=== PATIENT | female | born 2000 | race Caucasian/White ===

== ENCOUNTER 2023-09-21 18:37 | Inpatient (IN) | payer OTHER ==
[2023-09-21] MEDS ORDERED: SODIUM CHLORIDE 1,864 ML IV ONE (19:47)
[2023-09-21] MEDS ORDERED: ACETAMINOPHEN 1000 MG/100 ML BAG IVPB ONE (19:50)
[2023-09-21] MEDS ORDERED: ACETAMINOPHEN INJECTION 100 ML IVPB ONE (20:05)
[2023-09-21 20:20] LABS: MCHC 28.9 g/dl (32.0-36.0); MEAN CELL VOLUME 51.3 fl (80-96); MEAN PLT VOLUME 8.3 fl (7.5-11.1); PLATELET COUNT 516 10^3/uL (134-434); RBC 3.61 M/mm3 (3.60-5.2); RDW 19.6 % (11.6-15.6); WHITE BLOOD COUNT 20.9 K/mm3 (4.0-10.0)
[2023-09-21 20:22] LABS: EPI CELLS 15 /uL (0-25.1); HYALINE CASTS 1 /uL (0-3.1); URINE APPEARANCE CLOUDY; URINE BACTERIA >9,000 /uL (0-1359); URINE BILIRUBIN NEGATIVE (NEGATIVE); URINE COLOR YELLOW; URINE GLUCOSE (UA) NEGATIVE (NEGATIVE); URINE KETONE 1+ (NEGATIVE); URINE LEUK ESTERASE 2+ (NEGATIVE); URINE NITRITE POSITIVE (NEGATIVE); URINE PROTEIN 2+ (NEGATIVE); URINE RBC 30 /uL (0-23.9); URINE WBC 1394 /uL (0-25.8)
[2023-09-21 20:22] LABS: INR 1.24 (0.83-1.09); PROTHROMBIN TIME (PATIENT) 14.3 SEC (9.7-13.0)
[2023-09-21 20:23] LABS: MCH 14.8 pg (25.7-33.7)
[2023-09-21 20:24] LABS: VENOUS BASE EXCESS -2.5 mmol/L (-2-2); VENOUS O2 SATURATION 56.6 % (70-80); VENOUS PCO2 38.1 mmHg (38-52); VENOUS PH 7.385 (7.310-7.410)
[2023-09-21 20:25] LABS: ACTIVATED PTT 27.3 SECONDS (25.2-36.5); HEMATOCRIT 18.5 % (32.4-45.2); HEMOGLOBIN 5.4 GM/dL (10.7-15.3)
[2023-09-21 20:26] LABS: ADD RBC MORPHOLOGY YES
[2023-09-21 20:27] LABS: CHLORIDE 106 mmol/L (98-107); POTASSIUM 3.2 mmol/L (3.5-5.1); SODIUM 135 mmol/L (136-145)
[2023-09-21 20:29] LABS: CALCIUM 8.7 mg/dL (8.5-10.1)
[2023-09-21 20:30] LABS: ALBUMIN 3.5 g/dl (3.4-5.0); ANION GAP 5 mmol/L (4-13); BLOOD UREA NITROGEN 10.3 mg/dL (7-18); CO2 23 mmol/L (21-32); GLUCOSE,RANDOM 101 mg/dL (74-106); MAGNESIUM 2.1 mg/dL (1.8-2.4)
[2023-09-21 20:33] LABS: CREATININE 0.7 mg/dL (0.55-1.3); SGOT/AST 14 U/L (15-37); SGPT/ALT 16 U/L (13-61)
[2023-09-21 20:34] LABS: TOT PROT 6.9 g/dl (6.4-8.2)
[2023-09-21 20:35] LABS: BILIRUBIN,TOTAL 0.6 mg/dL (0.2-1)
[2023-09-21 20:36] LABS: ALK PHOS 88 U/L (45-117)
[2023-09-21] MEDS ORDERED: CEFTRIAXONE 1 GM/50 ML BAG ONE (20:36)
[2023-09-21] MEDS ORDERED: POTASSIUM CHLORIDE TABS 20 MEQ TABLET.ER (FP) PO ONE ×2 (21:05→21:14)
[2023-09-21 21:44] LABS: ANISOCYTOSIS 3+; MACROCYTOSIS 0; OVALOCYTE 1+; TARGET CELLS 1+; TEAR DROP CELLS 1+
[2023-09-21] MEDS ORDERED: VANCOMYCIN 1,000 MG in DEXTROSE 5%-WATER - 250 ML IVPB ONE (22:27)
[2023-09-21] MEDS ORDERED: VANCOMYCIN 1 GRAM (PRE-DOCKED) 1,000 MG/250 ML BAG IVPB ONE (22:32)
[2023-09-21 23:12] LABS: BF GLUCOSE (CSF ONLY) 62 mg/dL (40-70)
[2023-09-21 23:13] LABS: CSF APPEARANCE CLEAR (CLEAR); CSF COLOR COLORLESS (COLORLESS); CSF WBC 1 mm3 (0-5)
[2023-09-22] MEDS ORDERED: ACETAMINOPHEN 1000 MG/100 ML BAG IVPB PRN (06:26)
[2023-09-22] MEDS ORDERED: IBUPROFEN 800 MG/8 ML IJ IVPB ONE (09:03)
[2023-09-22 09:51] LABS: BASO % 0.3 % (0-2.0); EOS % 0.1 % (0-4.5); HEMATOCRIT 23.4 % (32.4-45.2); HEMOGLOBIN 7.3 GM/dL (10.7-15.3); LYMPH % 5.1 % (8-40); MCHC 31.1 g/dl (32.0-36.0); MEAN CELL VOLUME 59.5 fl (80-96); MEAN PLT VOLUME 8.3 fl (7.5-11.1); MONO % 10.9 % (3.8-10.2); NEUT % 83.6 % (42.8-82.8); PLATELET COUNT 404 10^3/uL (134-434); RBC 3.93 M/mm3 (3.60-5.2); RDW 30.2 % (11.6-15.6); WHITE BLOOD COUNT 16.9 K/mm3 (4.0-10.0)
[2023-09-22 09:56] LABS: MCH 18.5 pg (25.7-33.7)
[2023-09-22 10:08] LABS: POTASSIUM 3.3 mmol/L (3.5-5.1)
[2023-09-22 10:11] LABS: CALCIUM 8.1 mg/dL (8.5-10.1)
[2023-09-22 10:15] LABS: CREATININE 0.5 mg/dL (0.55-1.3); PHOSPHOROUS 2.9 mg/dL (2.5-4.9)
[2023-09-22 10:16] LABS: BILIRUBIN,TOTAL 1.3 mg/dL (0.2-1)
[2023-09-22 10:18] LABS: RETICULOCYTES 1.14 % (0.5-1.5)
[2023-09-22] MEDS: CEFTRIAXONE 1 GM in DEXTROSE 5%-WATER - 50 ML IVPB SCH (10:58)
[2023-09-22] MEDS: POTASSIUM CHLORIDE TABS 20 MEQ TABLET.ER (FP) PO SCH ×2 (12:26→21:50)
[2023-09-22] MEDS: IBUPROFEN 400 MG TABLET (FP) PO PRN (21:50)
[2023-09-23] MEDS ORDERED: ACETAMINOPHEN 1000 MG/100 ML BAG IVPB ONE (00:29)
[2023-09-23 09:14] LABS: BASO % 0.4 % (0-2.0); EOS % 0.9 % (0-4.5); HEMATOCRIT 24.9 % (32.4-45.2); HEMOGLOBIN 7.7 GM/dL (10.7-15.3); LYMPH % 15.5 % (8-40); MCHC 30.8 g/dl (32.0-36.0); MEAN PLT VOLUME 8.1 fl (7.5-11.1); MONO % 12.2 % (3.8-10.2); PLATELET COUNT 435 10^3/uL (134-434); RBC 4.14 M/mm3 (3.60-5.2); RDW 30.5 % (11.6-15.6); WHITE BLOOD COUNT 11.2 K/mm3 (4.0-10.0)
[2023-09-23 09:15] LABS: MCH 18.5 pg (25.7-33.7)
[2023-09-23] MEDS ORDERED: cefTRIAXone SODIUM 1 GM VIAL ONE (09:19)
[2023-09-23] MEDS: CEFTRIAXONE 1 GM in DEXTROSE 5%-WATER - 50 ML IVPB SCH (09:23)
[2023-09-23 10:08] LABS: ALBUMIN 2.8 g/dl (3.4-5.0); BLOOD UREA NITROGEN 9.1 mg/dL (7-18); CALCIUM 8.4 mg/dL (8.5-10.1); MAGNESIUM 2.1 mg/dL (1.8-2.4)
[2023-09-23 10:11] LABS: CREATININE 0.4 mg/dL (0.55-1.3)
[2023-09-23 10:13] LABS: BILIRUBIN,TOTAL 0.6 mg/dL (0.2-1); TOT PROT 6.1 g/dl (6.4-8.2)
[2023-09-23 11:57] LABS: HIV INTERPRETATION NEGATIVE (NEGATIVE)
[2023-09-23] MEDS: CEFAZOLIN 1 GM in DEXTROSE 5%-WATER - 50 ML IVPB SCH ×2 (13:48→17:23)
[2023-09-23 14:27] VITALS: BMI 18.9
[2023-09-23] MEDS: IBUPROFEN 400 MG TABLET (FP) PO PRN (17:25)
[2023-09-24] MEDS: CEFAZOLIN 1 GM in DEXTROSE 5%-WATER - 50 ML IVPB SCH ×3 (01:00→17:46)
[2023-09-24] MEDS: IBUPROFEN 400 MG TABLET (FP) PO PRN ×2 (05:28→17:58)
[2023-09-24] MEDS: IRON SUCROSE INJECTION 200 MG in SODIUM CHLORIDE 90 ML IVPB SCH (06:09)
[2023-09-24 09:15] LABS: BASO % 0.9 % (0-2.0); EOS % 1.1 % (0-4.5); HEMATOCRIT 25.8 % (32.4-45.2); HEMOGLOBIN 8.2 GM/dL (10.7-15.3); LYMPH % 15.3 % (8-40); MCHC 31.8 g/dl (32.0-36.0); MEAN CELL VOLUME 59.2 fl (80-96); MEAN PLT VOLUME 8.1 fl (7.5-11.1); MONO % 12.1 % (3.8-10.2); NEUT % 70.6 % (42.8-82.8); PLATELET COUNT 442 10^3/uL (134-434); RBC 4.36 M/mm3 (3.60-5.2); RDW 30.7 % (11.6-15.6); WHITE BLOOD COUNT 10.1 K/mm3 (4.0-10.0)
[2023-09-24 09:19] LABS: MCH 18.8 pg (25.7-33.7)
[2023-09-24 09:39] LABS: POTASSIUM 3.6 mmol/L (3.5-5.1)
[2023-09-24 09:46] LABS: BLOOD UREA NITROGEN 10.3 mg/dL (7-18); CALCIUM 8.3 mg/dL (8.5-10.1)
[2023-09-24 09:49] LABS: CREATININE 0.5 mg/dL (0.55-1.3)
[2023-09-24 09:50] LABS: BILIRUBIN,TOTAL 0.7 mg/dL (0.2-1); TOT PROT 6.6 g/dl (6.4-8.2)
[2023-09-25] MEDS: CEFAZOLIN 1 GM in DEXTROSE 5%-WATER - 50 ML IVPB SCH ×3 (01:29→17:07)
[2023-09-25] MEDS: IRON SUCROSE INJECTION 200 MG in SODIUM CHLORIDE 90 ML IVPB SCH (06:42)
[2023-09-25 09:24] LABS: HEMATOCRIT 27.2 % (32.4-45.2); HEMOGLOBIN 8.8 GM/dL (10.7-15.3); MCHC 32.5 g/dl (32.0-36.0); MEAN CELL VOLUME 58.4 fl (80-96); MEAN PLT VOLUME 8.2 fl (7.5-11.1); PLATELET COUNT 462 10^3/uL (134-434); RBC 4.66 M/mm3 (3.60-5.2); RDW 32.1 % (11.6-15.6); WHITE BLOOD COUNT 9.2 K/mm3 (4.0-10.0)
[2023-09-25 09:26] LABS: POTASSIUM 3.7 mmol/L (3.5-5.1)
[2023-09-25 09:27] LABS: CALCIUM 8.9 mg/dL (8.5-10.1)
[2023-09-25 09:28] LABS: BLOOD UREA NITROGEN 7.4 mg/dL (7-18); MAGNESIUM 1.9 mg/dL (1.8-2.4)
[2023-09-25 09:32] LABS: BILIRUBIN,TOTAL 0.4 mg/dL (0.2-1); CREATININE 0.5 mg/dL (0.55-1.3)
[2023-09-25 09:33] LABS: TOT PROT 6.6 g/dl (6.4-8.2)
[2023-09-25 11:52] LABS: ANISOCYTOSIS 2+; MACROCYTOSIS 0
[2023-09-26] MEDS: CEFAZOLIN 1 GM in DEXTROSE 5%-WATER - 50 ML IVPB SCH ×3 (02:01→17:19)
[2023-09-26] MEDS: IRON SUCROSE INJECTION 200 MG in SODIUM CHLORIDE 90 ML IVPB SCH (06:10)
[2023-09-26 09:25] LABS: HEMATOCRIT 27.2 % (32.4-45.2); HEMOGLOBIN 8.9 GM/dL (10.7-15.3); MCHC 32.7 g/dl (32.0-36.0); MEAN CELL VOLUME 58.9 fl (80-96); MEAN PLT VOLUME 8.4 fl (7.5-11.1); PLATELET COUNT 462 10^3/uL (134-434); RBC 4.62 M/mm3 (3.60-5.2); RDW 32.2 % (11.6-15.6)
[2023-09-26 09:27] LABS: MCH 19.3 pg (25.7-33.7)
[2023-09-26 09:56] LABS: ANISOCYTOSIS 3+; MACROCYTOSIS 0
[2023-09-26 10:05] LABS: CALCIUM 8.9 mg/dL (8.5-10.1)
[2023-09-26 10:06] LABS: ALBUMIN 3.1 g/dl (3.4-5.0); MAGNESIUM 2.3 mg/dL (1.8-2.4)
[2023-09-26 10:09] LABS: CREATININE 0.5 mg/dL (0.55-1.3)
[2023-09-26 10:11] LABS: BILIRUBIN,TOTAL 0.5 mg/dL (0.2-1); TOT PROT 6.9 g/dl (6.4-8.2)
[2023-09-26 15:23] VITALS: RESP 18
[2023-09-27] MEDS: CEFAZOLIN 1 GM in DEXTROSE 5%-WATER - 50 ML IVPB SCH ×2 (02:35→09:33)
[2023-09-27] MEDS: IRON SUCROSE INJECTION 200 MG in SODIUM CHLORIDE 90 ML IVPB SCH (06:23)
[2023-09-27 09:42] LABS: BASO % 1.1 % (0-2.0); EOS % 3.2 % (0-4.5); HEMATOCRIT 29.7 % (32.4-45.2); LYMPH % 22.9 % (8-40); MCHC 30.3 g/dl (32.0-36.0); MEAN CELL VOLUME 60.7 fl (80-96); MONO % 6.2 % (3.8-10.2); NEUT % 66.6 % (42.8-82.8); PLATELET COUNT 540 10^3/uL (134-434); RBC 4.89 M/mm3 (3.60-5.2); WHITE BLOOD COUNT 8.3 K/mm3 (4.0-10.0)
[2023-09-27 09:49] LABS: MCH 18.4 pg (25.7-33.7)
[2023-09-27] MEDS ORDERED: CEFTRIAXONE 2 GM in DEXTROSE 5%-WATER 100 ML IVPB SCH (10:00)
[2023-09-27 10:02] LABS: POTASSIUM 4.3 mmol/L (3.5-5.1)
[2023-09-27 10:27] LABS: ALBUMIN 3.2 g/dl (3.4-5.0); BLOOD UREA NITROGEN 10.7 mg/dL (7-18); CALCIUM 9.3 mg/dL (8.5-10.1); MAGNESIUM 2.5 mg/dL (1.8-2.4)
[2023-09-27 10:29] LABS: CREATININE 0.5 mg/dL (0.55-1.3)
[2023-09-27 10:31] LABS: TOT PROT 7.1 g/dl (6.4-8.2)
[2023-09-27 10:32] LABS: BILIRUBIN,TOTAL 0.4 mg/dL (0.2-1)
[2023-09-27 16:20] VITALS: BP 109/59; PULSE 74; TEMP 98.6
== END 2023-09-27 17:32 | disposition home or self-care (01) | DRG 720 ==
LOC: JER 18:37 → JERBED 20:30 → J8W 09-22 05:47
PROVIDERS: ADMIT Internal Medicine; ATTEND Nurse Practitioner Family
PROC: 009U3ZZ Drainage of Spinal Canal, Percutaneous Approach (ICD-10-PCS; principal; 2023-09-21)
PROC: 30233N1 Transfusion of Nonautologous Red Blood Cells into Peripheral Vein, Percutaneous Approach (ICD-10-PCS; 2023-09-21)
PROC: 02HV33Z Insertion of Infusion Device into Superior Vena Cava, Percutaneous Approach (ICD-10-PCS; 2023-09-27)
PROC: B548ZZA Ultrasonography of Superior Vena Cava, Guidance (ICD-10-PCS; 2023-09-27)
DX: A41.9 Sepsis, unspecified organism (principal); N15.1 Renal and perinephric abscess; D50.9 Iron deficiency anemia, unspecified; D64.9 Anemia, unspecified; E87.6 Hypokalemia; N10 Acute pyelonephritis; N12 Tubulo-interstitial nephritis, not specified as acute or chronic; N39.0 Urinary tract infection, site not specified; Z68.1 Body mass index [BMI] 19.9 or less, adult; B96.20 Unspecified Escherichia coli [E. coli] as the cause of diseases classified elsewhere
CPT/HCPCS: 0241U-QW; 36415; 36430; 36569; 70450-TC; 71045-TC-FY; 74178-TC; 76700-TC; 76830-TC; 77001-TC-FY; 80053; 81003; 82272; 82550; 82553; 82607; 82728; 82746; 82803; 82945; 83021; 83540; 83550; 83605; 83735; 84100; 84157; 84466; 84484; 84703; 85025; 85045; 85610; 85660; 85730; 86850; 86900; 86901; 86922; 87040; 87070; 87086; 87186; 87205; 87389; 93005; 93010; 99285-25; C1751; J1756; P9058; Q9967

== ENCOUNTER 2023-09-28 10:44 | Day surgery (SDC) | payer SELFPAY ==
[2023-09-28 11:11] VITALS: BP 102/53; TEMP 98.2
[2023-09-28] MEDS ORDERED: CEFTRIAXONE 2 GM in DEXTROSE 5%-WATER 100 ML IVPB ONE (11:30)
[2023-09-28 11:56] VITALS: PULSE 71; RESP 19
== END 2023-09-28 12:45 | disposition home or self-care (01) ==
LOC: FINFUSION 10:44 → FM/S 10:50 → FINFUSION 12:45
PROVIDERS: ATTEND Internal Medicine
DX: N12 Tubulo-interstitial nephritis, not specified as acute or chronic (principal); A41.9 Sepsis, unspecified organism; D64.9 Anemia, unspecified; N93.9 Abnormal uterine and vaginal bleeding, unspecified; N15.1 Renal and perinephric abscess
CPT/HCPCS: 96365

== ENCOUNTER 2023-09-29 10:49 | Day surgery (SDC) | payer SELFPAY ==
[2023-09-29] MEDS ORDERED: CEFTRIAXONE 2 GM in DEXTROSE 5%-WATER 100 ML IVPB ONE (11:15)
[2023-09-29 14:21] VITALS: BP 99/62; PULSE 65; RESP 16; TEMP 98.1
== END 2023-09-29 12:00 | disposition home or self-care (01) ==
LOC: FINFUSION 10:49 → FM/S 10:57 → FINFUSION 12:00
PROVIDERS: ATTEND Internal Medicine
DX: N12 Tubulo-interstitial nephritis, not specified as acute or chronic (principal); A41.9 Sepsis, unspecified organism; D64.9 Anemia, unspecified; N93.9 Abnormal uterine and vaginal bleeding, unspecified; N15.1 Renal and perinephric abscess
CPT/HCPCS: 96365

== ENCOUNTER 2023-09-30 10:29 | Day surgery (SDC) | payer SELFPAY ==
[2023-09-30] MEDS ORDERED: CEFTRIAXONE 2 GM in SODIUM CHLORIDE 100 ML IVPB SCH (10:45)
[2023-09-30 11:35] VITALS: BP 104/56; PULSE 71; RESP 14; TEMP 98.6
== END 2023-09-30 11:39 | disposition home or self-care (01) ==
LOC: FINFUSION 10:29 → FM/S 10:30 → FINFUSION 11:39
PROVIDERS: ATTEND Internal Medicine
DX: N12 Tubulo-interstitial nephritis, not specified as acute or chronic (principal); A41.9 Sepsis, unspecified organism; D64.9 Anemia, unspecified; N93.9 Abnormal uterine and vaginal bleeding, unspecified; N15.1 Renal and perinephric abscess
CPT/HCPCS: 96365

== ENCOUNTER 2023-10-01 11:27 | Day surgery (SDC) | payer SELFPAY ==
[2023-10-01] MEDS ORDERED: CEFTRIAXONE 2 GM in DEXTROSE 5%-WATER 100 ML IVPB ONE (12:00)
[2023-10-01 12:44] VITALS: BP 110/62; PULSE 86; RESP 18; TEMP 98
== END 2023-10-01 12:44 | disposition home or self-care (01) ==
LOC: FM/S 11:27 → FINFUSION 11:27
PROVIDERS: ATTEND Internal Medicine
DX: N12 Tubulo-interstitial nephritis, not specified as acute or chronic (principal); A41.9 Sepsis, unspecified organism; D64.9 Anemia, unspecified; N93.9 Abnormal uterine and vaginal bleeding, unspecified; N15.1 Renal and perinephric abscess
CPT/HCPCS: 96365

== ENCOUNTER 2023-10-02 11:16 | Day surgery (SDC) | payer SELFPAY ==
[2023-10-02] MEDS ORDERED: CEFTRIAXONE 2 GM in DEXTROSE 5%-WATER 100 ML IVPB ONE (11:30)
[2023-10-02 12:18] VITALS: BP 98/57; PULSE 89; RESP 16; TEMP 98.2
== END 2023-10-02 12:17 | disposition home or self-care (01) ==
LOC: FINFUSION 11:16 → FM/S 11:17 → FINFUSION 12:17
PROVIDERS: ATTEND Internal Medicine
DX: N12 Tubulo-interstitial nephritis, not specified as acute or chronic (principal); A41.9 Sepsis, unspecified organism; D64.9 Anemia, unspecified; N93.9 Abnormal uterine and vaginal bleeding, unspecified; N15.1 Renal and perinephric abscess
CPT/HCPCS: 96365

== ENCOUNTER 2023-10-03 11:39 | Day surgery (SDC) | payer SELFPAY ==
[2023-10-03 11:59] LABS: HEMATOCRIT 31.5 % (32.4-45.2); HEMOGLOBIN 10.2 G/dL (10.7-15.3); MCHC 32.5 g/dl (32.0-36.0); MEAN CELL VOLUME 67.7 fl (80-96); MEAN PLT VOLUME 7.4 fl (7.5-11.1); PLATELET COUNT 637.5 10^3/uL (134-434); RBC 4.65 10^6/uL (3.60-5.2); RDW 41.4 % (11.6-15.6); WHITE BLOOD COUNT 6.8 10^3/uL (4.0-10.8)
[2023-10-03] MEDS ORDERED: CEFTRIAXONE 2 GM in DEXTROSE 5%-WATER 100 ML IVPB ONE (12:00)
[2023-10-03 12:23] LABS: ALBUMIN 4.2 g/dl (3.4-5.0); BILIRUBIN,TOTAL 0.4 mg/dl (0.2-1); CALCIUM 9.3 mg/dl (8.5-10.1); CREATININE 0.7 mg/dl (0.6-1.3); POTASSIUM 3.9 mmol/L (3.5-5.1); TOT PROT 7.2 g/dl (6.4-8.2)
[2023-10-03 13:57] VITALS: BP 100/50; PULSE 80; RESP 16; TEMP 97.9
== END 2023-10-03 13:38 | disposition home or self-care (01) ==
LOC: FINFUSION 11:39 → FM/S 11:42 → FINFUSION 13:38
PROVIDERS: ATTEND Internal Medicine
DX: N12 Tubulo-interstitial nephritis, not specified as acute or chronic (principal); A41.9 Sepsis, unspecified organism; D64.9 Anemia, unspecified; N93.9 Abnormal uterine and vaginal bleeding, unspecified; N15.1 Renal and perinephric abscess
CPT/HCPCS: 36415; 80053; 85027; 96365

== ENCOUNTER 2023-10-04 11:31 | Day surgery (SDC) | payer SELFPAY ==
[2023-10-04] MEDS ORDERED: CEFTRIAXONE 2 GM in DEXTROSE 5%-WATER 100 ML IVPB ONE (11:45)
[2023-10-04 13:19] VITALS: BP 100/52; PULSE 70; RESP 18; TEMP 98.1
== END 2023-10-04 13:48 | disposition home or self-care (01) ==
LOC: FINFUSION 11:31 → FM/S 11:33 → FINFUSION 13:48
PROVIDERS: ATTEND Internal Medicine
DX: N12 Tubulo-interstitial nephritis, not specified as acute or chronic (principal); A41.9 Sepsis, unspecified organism; D64.9 Anemia, unspecified; N15.1 Renal and perinephric abscess; N93.9 Abnormal uterine and vaginal bleeding, unspecified
CPT/HCPCS: 96365